=== PATIENT | male | born 1975 | race Caucasian/White ===

== ENCOUNTER → 2020-04-16 | Outpatient (CLI) | payer BC | END | disposition home or self-care (01) | LOC: LABWHC1 11:29 | PROVIDERS: ATTEND Family Medicine | DX: R50.9 Fever, unspecified (principal); R05 Cough | CPT/HCPCS: U0003; C9803 ==

== ENCOUNTER → 2020-10-28 | Outpatient (CLI) | payer BC ==
--- NOTE | 2020-10-28 18:02 | CONS ---
CONSULTATION DATE OF SERVICE: 10/28/2020 DATE OF SERVICE: A 45-year-old gentleman who has been evaluated in the sleep center for possible obstructive sleep apnea-hypopnea syndrome. HISTORY OF PRESENT ILLNESS/SLEEP WAKE EVALUATION: The patient's usual sleep schedule from 9 p.m. to 2 a.m. until 6:45 to 7:25 am and on weekends from 9 p.m. to 2 a.m. until 10 to 11 am. No problems with falling asleep. No TV in bedroom. The patient sleeps in different position. He snores loudly and has witnessed by his episodes of stopped breathing during sleep. Occasionally, patient has episodes of palpitations during the sleep. The patient wakes up from sleep once with nocturia. No history of hypnagogic hallucinations, sleep paralysis or cataplexy. In the morning patient wakes up tired. Has difficulties paying attention, has problems with memory and concentration. [place] Sleepiness Scale significantly increased to 14. PAST MEDICAL HISTORY: Positive for episodes of hypertension, asthma. SOCIAL HISTORY: Negative for smoking or using alcohol. PAST SURGICAL HISTORY: Surgery for pyloric stenosis in card boxer. Right knee reconstruction. FAMILY HISTORY: Diabetes, mental illness, heart problems, hyperlipidemia. REVIEW OF SYSTEMS: Snoring, witnessed episodes of stopped breathing during sleep, sleepiness during the day. PHYSICAL EXAM: GENERAL: gentleman without distress. VITAL SIGNS: BP 148/89, HR 60, RR 12, height 6 feet 2 inches, weight 231.6, temperature 96.7, oxygen saturation at room air 98%. BMI 29.5. HEENT: PERRLA, EOMI, evaluation of oropharynx showed tongue protrudes midline. Low position of soft palate. Mallampati 3-4. Wide neck, 17 inches in circumference. NECK: Supple, no JVD. Thyroid is not palpable. LUNGS: Clear to percussion and to auscultation. Good air exchange. No wheezing or rhonchi. HEART: S1, S2 regular. No murmurs, gallops, or rubs. ABDOMEN: Soft and nontender. Bowel sounds are present. No organomegaly appreciated. EXTREMITIES: No clubbing or cyanosis. CERTIFIED MEDICAL RECORDS CODER: Awake, alert, and oriented X3. Cranial nerves 2 to 7 intact. There is no fasciculation or atrophy. noted. No focal deficits observed. IMPRESSION: 1. Loud snoring, witnessed episodes of stopped breathing during the sleep, extremely low position of soft palate, wide neck at 17 inches in circumference, sleepiness with [place] Sleepiness Scale increased to 14, obstructive sleep apnea-hypopnea syndrome. 2. Some increased blood pressure in the office. 3. Tendency for sleep delay syndrome. 4. Status post pyloric stenosis treatment in childhood. 5. Status post right knee reconstruction. 6. History of asthma. PLAN: 1. Home sleep apnea test for evaluation of patient's breathing during sleep. 2. CPAP/BiPAP titration if sleep study confirms obstructive sleep apnea-hypopnea syndrome. 3. Preferable position during sleep on the side. 4. No driving if patient feels any sleepiness. 5. I will see patient for follow up visit to explain results of testing and following plan. 6. Bright light in the morning to move sleep cycle to the earlier time. The patient could use artificial light machine. 7. If the patient continues to have symptoms of significant excessive daytime sleepiness and sleep study will be negative for obstructive sleep apnea-hypopnea syndrome, patient is a candidate for multiple sleep latency test for objective evaluation of symptoms of excessive daytime sleepiness. Thank you very much for referring this patient for consultation. Sincerely, Prashant Cuba MD, PhD, FAASM Diplomat of [place] [employer] [place] [employer] Dyeing Machine Feeder of [facility] MMODL / WILLYN: [id number] /
== END | disposition home or self-care (01) ==
LOC: SLEEP 16:30
PROVIDERS: ATTEND Internal Medicine
DX: G47.33 Obstructive sleep apnea (adult) (pediatric) (principal); G47.8 Other sleep disorders; Z87.19 Personal history of other diseases of the digestive system; Z87.09 Personal history of other diseases of the respiratory system; R03.0 Elevated blood-pressure reading, without diagnosis of hypertension
CPT/HCPCS: 99211

== ENCOUNTER → 2022-01-18 | Outpatient (CLI) | payer BC ==
--- NOTE | 2022-01-19 21:15 | SFUN ---
SLEEP CENTER FOLLOW UP NOTE DATE OF SERVICE: 01/18/2022 This 46-year-old gentleman has been followed in Sleep Center for treatment of obstructive sleep apnea-hypopnea syndrome and excessive daytime sleepiness. Recently the patient had a home sleep apnea test which showed mild obstructive sleep apnea with apnea-hypopnea index of 8.3. Because at symptoms of excessive daytime sleepiness, patient was started on treatment with CPAP. Today is his first visit after CPAP treatment was initiated. I explained results of the sleep study to the patient in detail. He is using CPAP, but not on a regular basis. He is not compliant with treatment. Usage for the last 13 nights was only 8 nights, and only 4 nights for more than 4 hours. Pressure in the machine is in the range between 5 and 15, average pressure 7.7 cm of water. Leak is borderline at 30.6 L/minute. Apnea-hypopnea index reduced to normal at 2.7 following reading from the machine. Jones Sleepiness Scale today is increased at 18. MEDICATIONS: None. PHYSICAL EXAMINATION: GENERAL: Pleasant patient in no distress. VITAL SIGNS: BP 152/93, HR 60, RR 16, weight 228.4, temperature 97.4, oxygen saturation at room air 97%. HEENT: PERRLA, EOMI, evaluation of oropharynx showed tongue protrudes midline. Low position of soft palate; Mallampati III to IV. NECK: Supple, no JVD. Thyroid is not palpable. LUNGS: Clear to percussion and to auscultation. Good air exchange. No wheezing or rhonchi. HEART: S1, S2 regular. No murmurs, gallops, or rubs. ABDOMEN: Soft and nontender. Bowel sounds are present. No organomegaly appreciated. EXTREMITIES: No clubbing or cyanosis. WINTER SPORTS MANAGER: Awake, alert, and oriented X3. Cranial nerves 2 to 7 intact. There is no fasciculation or atrophy. noted. No focal deficits observed. IMPRESSION: 1. Obstructive sleep apnea-hypopnea syndrome. At the present time the patient is not compliant with treatment. Reading from the machine showed that with the usage of CPAP his respiration normalized. 2. The patient presented with symptoms of excessive daytime sleepiness. Today's Jones Sleepiness Scale is 18. Sleepiness could be secondary to obstructive sleep apnea-hypopnea syndrome or it could be secondary to or other sleep disorders. 3. Status post pyloric stenosis treatment in childhood. 4. Status post right knee reconstruction. 5. History of asthma. PLAN: 1. Patient should use CPAP equipment every night for the whole night. He promised to follow recommendations. 2. Sleep hygiene with regular time in bed for at least 7-1/2 hours. 3. Precautions related to driving. No driving if feeling sleepiness. 4. Follow-up visit to re-evaluate the patient's compliance and also to check his response on treatment with CPAP with relationship to his excessive daytime sleepiness. If his sleepiness with good compliance on CPAP does not go away, we may consider multiple sleep latency test. Thank you very much for allowing me to participate in the management of your patient. Sincerely, Prashant Cuba MD, PhD, FAASM Diplomat of [place] [employer] Sleep Medicine Board of [place] [employer] Civil Design Technician of [facility] [place] PB / HUMPHREY: [id number] /
== END ==
LOC: SLEEP 11:10
PROVIDERS: ATTEND Internal Medicine
DX: G47.33 Obstructive sleep apnea (adult) (pediatric) (principal); Z99.89 Dependence on other enabling machines and devices; Z98.890 Other specified postprocedural states; J45.909 Unspecified asthma, uncomplicated; Z87.19 Personal history of other diseases of the digestive system

== ENCOUNTER 2025-03-03 21:57 | Emergency (ER) | payer BC ==
--- NOTE | 2025-03-03 22:08 | ED ---
Lower Extremity Injury HPI - General Chief Complaint: Extremity Injury, Lower Stated Complaint: R Ankle Injury Time Seen by Provider: 03/03/25 22:02 Source: patient, RN notes reviewed Mode of arrival: wheelchair Limitations: no limitations - History of Present Illness Initial Comments: 49-year-old male presents emergency department complaint of right ankle injury. Patient states he is playing soccer when he rolled his ankle. Patient states he has pain, swelling. No prior fractures. Patient states he has no paresthesias no other complaints. - Related Data Allergies Allergy/AdvReac Type Severity Reaction Status Date / Time No Known Allergies Allergy Verified 03/03/25 22:01 Review of Systems ROS Statement: Those systems with pertinent positive or pertinent negative responses have been documented in the HPI. ROS Other: All systems not noted in ROS Statement are negative. Past Medical History Past Medical History: No Reported History History of Any Multi-Drug Resistant Organisms: None Reported Past Surgical History: No Surgical Hx Reported Past Psychological History: No Psychological Hx Reported Smoking Status: Never smoker Past Alcohol Use History: None Reported Past Drug Use History: None Reported General Exam Limitations: no limitations General appearance: alert, in no apparent distress Head exam: Present: atraumatic, normocephalic, normal inspection Eye exam: Present: normal appearance, PERRL, EOMI. Absent: scleral icterus, conjunctival injection, periorbital swelling Respiratory exam: Present: normal lung sounds bilaterally. Absent: respiratory distress, wheezes, rales, rhonchi, stridor Cardiovascular Exam: Present: regular rate, normal rhythm, normal heart sounds. Absent: systolic murmur, diastolic murmur, rubs, gallop, clicks Extremities exam: Present: other (Right ankle diffuse swelling, tenderness to palpation, neurovascular intact no proximal tib-fib tenderness) Course Vital Signs 03/03/25 22:01 Temperature 98.3 F Pulse Rate 58 L Respiratory 16 Rate Blood Pressure 178/101 O2 Sat by Pulse 97 Oximetry Procedures - Orthopedic Splinting/Casting Injury #1 Side: right Lower Extremity Injury Location: short leg, ankle Lower Extremity Immobilizer: posterior splint, synthetic pre-padded splint Other Orthopedic Equipment: crutches Medical Decision Making - Medical Decision Making Was pt. sent in by a medical professional or institution (, PA, INSURANCE CLAIMS ASSISTANT, urgent care, hospital, or long term...) When possible be specific @ -No Did you speak to anyone other than the patient for history (EMS, parent, family, police, friend...)? What history was obtained from this source @ -No Did you review nursing and triage notes (agree or disagree)? Why? @ -I reviewed and agree with nursing and triage notes Were old charts reviewed (outside hosp., previous admission, EMS record, old EKG, old radiological studies, urgent care reports/EKG's, long term records)? Report findings @ -No old charts were reviewed Differential Diagnosis (chest pain, altered mental status, abdominal pain women, abdominal pain men, vaginal bleeding, weakness, fever, dyspnea, syncope, headache, dizziness, GI bleed, back pain, seizure, CVA, palpatations, mental hea lth, musculoskeletal)? @ -I ankle sprain ankle fracture ankle dislocation EKG interpreted by me (3pts min.). @ -None X-rays interpreted by me (1pt min.). @ -X-ray right ankle showing talus fracture CT interpreted by me (1pt min.). @ -None done U/S interpreted by me (1pt. min.). @ -None done What testing was considered but not performed or refused? (CT, X-rays, U/S, labs)? Why? @ -None What meds were considered but not given or refused? Why? @ -None Did you discuss the management of the patient with other professionals (professionals i.e. , PA, INSURANCE CLAIMS ASSISTANT, lab, RT, psych nurse, drug abuse social worker, corporate analyst, teacher, human resources officer, case advocate)? Give summary @ -No Was smoking cessation discussed for >3mins.? @ -No Was critical care preformed (if so, how long)? @ -No Were there social determinants of health that impacted care today? How? (Homelessness, low income, unemployed, alcoholism, drug addiction, transportation, low edu. Level, literacy, decrease access to med. care, skilled nursing, rehab)? @ -No Was there de-escalation of care discussed even if they declined (Discuss DNR or withdrawal of care, Hospice)? DNR status @ -No What co-morbidities impacted this encounter? (DM, HTN, Smoking, COPD, CAD, C ancer, CVA, ARF, Chemo, Hep., AIDS, mental health diagnosis, sleep apnea, morbid obesity)? @ -None Was patient admitted / discharged? Hospital course, mention meds given and route, prescriptions, significant lab abnormalities, going to OR and other pertinent info. @ -Discharge patient was splinted advised to be nonweightbearing and follow-up with orthopedics. Undiagnosed new problem with uncertain prognosis? @ -No Drug Therapy requiring intensive monitoring for toxicity (Heparin, Nitro, Insulin, Cardizem)? @ -No Were any procedures done? @ -No Diagnosis/symptom? @ -Ankle fracture right Acute, or Chronic, or Acute on Chronic? @ -Acute Uncomplicated (without systemic symptoms) or Complicated (systemic symptoms)? @ -[Uncomplicated Side effects of treatment? @ -No Exacerbation, Progression, or Severe Exacerbation? @ -No Poses a threat to life or bodily function? How? (Chest pain, [place], [place], pneumonia, PE, COPD, DKA, ARF, appy, cholecystitis, CVA, Diverticulitis, Homicidal, Suicidal, threat to staff... and all critical care pts) @ -No Disposition Clinical Impression: Closed right ankle fracture Disposition: HOME SELF-CARE Condition: Stable Instructions (If sedation given, give patient instructions): Ankle Fracture (ED) Additional Instructions: Please return to the Emergency Department if symptoms worsen or any other concerns. Is patient prescribed a controlled substance at d/c from ED?: No Referrals: Keith Robertson DO [Primary Care Provider] - 1-2 days Corey Galvan DO [Doctor of Osteopathic Medicine] - 1-2 days Time of Disposition: 23:26
--- NOTE | 2025-03-03 23:40 | XR ---
EXAM: XR Right Ankle Complete, 3 or More Views CLINICAL HISTORY: ITS.REASON XR Reason: pain TECHNIQUE: Frontal, lateral and oblique views of the right ankle. COMPARISON: No relevant prior studies available. FINDINGS: Bones/joints: No acute fracture. No dislocation. Old injury to the lateral malleolus. Soft tissues: Significant lateral malleolar soft tissue swelling. Joint effusion.. IMPRESSION: No acute osseous abnormalities. Significant lateral malleolar soft tissue swelling. Joint effusion..
[2025-03-04 00:06] VITALS: BP 168/94; PULSE 69; RESP 18; TEMP 98.1
== END 2025-03-04 00:03 | disposition home or self-care (01) ==
LOC: EC 21:57
DX: S82.891A Other fracture of right lower leg, initial encounter for closed fracture (principal); X50.0XXA Overexertion from strenuous movement or load, initial encounter; Y93.66 Activity, soccer
CPT/HCPCS: 29515; 99283